=== PATIENT | male | born 1960 | race Caucasian/White ===

== ENCOUNTER 2016-04-23 15:43 | Inpatient (IN) | payer MEDICARE, OTHER ==
[2016-04-23 17:43] VITALS: BMI 32.4
--- NOTE | 2016-04-23 19:58 | HP ---
Admission ROS S - [facility] Chief Complaint: I WANT TO GO TO REHAB Allergies/Adverse Reactions: Allergies Allergy/AdvReac Type Severity Reaction Status Date / Time No Known Drug Allergies Allergy Verified 04/23/16 19:05 History of Present Illness: 55 YEARS OLD MALE WITH LONG HISTORY OF ALCOHOL HEROIN NICOTINE DEPENDENCE DENIES MEDICAL HAS SCHIZOPHRENIA TREATED WITH ZYPREXA 10 MG BID IS ADMITTED TO REHAB Exam Limitations: No Limitations - Ebola screening Have you traveled outside of the country in the last 21 days: No Have you had contact with anyone from an Ebola affected area: No Have you been sick,other than usual withdrawal symptoms: No Do you have a fever: No - Review of Systems Constitutional: No Symptoms Reported EENT: reports: No Symptoms Reported Respiratory: reports: No Symptoms reported Cardiac: reports: No Symptoms Reported GI: reports: No Symptoms Reported : reports: No Symptoms Reported Musculoskeletal: reports: Joint Pain (RIGHT CLAVICAL FX 2015 LEFT HEEL) Integumentary: reports: No Symptoms Reported Neuro: reports: No Symptoms reported Endocrine: reports: No Symptoms Reported Hematology: reports: No Symptoms Reported Psychiatric: reports: Judgement Intact, Orientated x3 Other Systems: Reviewed and Negative Patient History - Patient Medical History Hx Anemia: No Hx Asthma: No Hx Chronic Obstructive Pulmonary Disease (COPD): No Hx Cancer: No Hx Cardiac Disorders: No Hx Congestive Heart Failure: No Hx Hypertension: No Hx Hypercholesterolemia: No Hx Pacemaker: No HX Cerebrovascular Accident: No Hx Seizures: No Hx Dementia: No Hx Diabetes: No Hx Gastrointestinal Disorders: No Hx Liver Disease: No Hx Genitourinary Disorders: No Hx Sexually Transmitted Disorders: No Hx Renal Disease (ESRD): No Hx Thyroid Disease: No Hx Human Immunodeficiency Virus (HIV): No Hx Hepatitis C: No Hx Depression: No Hx Suicide Attempt: No Hx Bipolar Disorder: No Hx Schizophrenia: Yes - Patient Surgical History Past Surgical History: Yes - PPD History Previous Implant?: Yes Documented Results: Negative w/proof Implanted On Prior [facility] Admission?: No Date: 12/10/15 PPD to be Administered?: No - Smoking Cessation Smoking history: Current every day smoker Have you smoked in the past 12 months: Yes Aproximately how many cigarettes per day: 20 Cigars Per Day: 0 Hx Chewing Tobacco Use: No Initiated information on smoking cessation: Yes 'Breaking Loose' booklet given: 04/23/16 - Substance & Tx. History Hx Alcohol Use: Yes Hx Substance Use: Yes Substance Use Type: Alcohol, Heroin Hx Substance Use Treatment: Yes - Substances Abused Alcohol Route: Oral Frequency: Daily Amount used: P[place]KA Age of first use: 18 Date of Last Use: 04/02/16 Heroin Route: Inhalation Frequency: Daily Amount used: 5 BAGS Age of first use: 26 Date of Last Use: 04/02/16 Family Disease History - Family Disease History Family Disease History: Diabetes: Mother, Sister, Heart Disease: Father ( ) Admission Physical Exam [facility] - Vital Signs Vital Signs: Vital Signs - 24 hr 04/23/16 17:40 Temperature 97.4 F L Pulse Rate 79 Respiratory 18 Rate Blood Pressure 133/88 - Physical General Appearance: Yes: Nourished, Appropriately Dressed HEENTM: Yes: Hearing grossly Normal, Normal ENT Inspection, Normocephalic, Normal Voice Respiratory: Yes: Chest Non-Tender, Lungs Clear, Normal Breath Sounds, No Respiratory Distress, No Accessory Muscle Use Neck: Yes: Supple, Trachea in good position Breast: Yes: Breasts Symetrical Cardiology: Yes: Regular Rhythm, Regular Rate, S1, S2 Abdominal: Yes: Non Tender, Soft Genitourinary: Yes: Within Normal Limits Back: Yes: Normal Inspection Musculoskeletal: Yes: full range of Motion, Gait Steady, Muscle Pain Extremities: Yes: Normal Inspection, Normal Range of Motion, Non-Tender Neurological: Yes: Fully Oriented, Alert, Motor Strength 5/5, Normal Response Integumentary: Yes: Normal Color, Warm Lymphatic: Yes: Within Normal Limits - Diagnostic (1) Alcohol dependence with uncomplicated withdrawal Current Visit: Yes Status: Acute (2) Opioid dependence with withdrawal Current Visit: Yes Status: Acute (3) Schizophrenia Current Visit: Yes Status: Suspected Qualifiers: Schizophrenia type: schizophreniform disorder Qualified Code(s): F20.81 - Schizophreniform disorder Comment: ZYPREXA 10 MG PO BID (4) Nicotine dependence Current Visit: Yes Status: Acute Qualifiers: Nicotine product type: cigarettes Substance use status: uncomplicated Qualified Code(s): F17.210 - Nicotine dependence, cigarettes, uncomplicated (5) Stress fracture of right clavicle Current Visit: Yes Status: Resolved (6) Intractable left heel pain Current Visit: Yes Status: Chronic Cleared for Admission [facility] - Detox or Rehab [facility] Level of Care: Observation Bed Claeared for Rehab Admission: Yes [facility] Breath Alcohol Content Breath Alcohol Content: 0 Urine Drug Screen - Results Drug Screen Negative: No Urine Drug Screen Results: BZO-Benzodiazepines, MTD-Methadone
[2016-04-23] MEDS ORDERED: LOPERAMIDE HCL 2 MG CAPSULE PO PRN (20:12)
[2016-04-23] MEDS ORDERED: IBUPROFEN 400 MG TABLET (FP) PO PRN (20:12)
[2016-04-23] MEDS ORDERED: hydrOXYzine PAMOATE 50 MG CAPSULE (FP) PO PRN (20:12)
[2016-04-23] MEDS ORDERED: guaiFENesin/D-METHORPHAN HB 10 ML UNIT-DOSE CUPS PO PRN (20:12)
[2016-04-23] MEDS ORDERED: MAG HYDROX/AL HYDROX/SIMETH 30 ML UNIT-DOSE CUP PO PRN (20:12)
[2016-04-23] MEDS ORDERED: diphenhydrAMINE HCL 50 MG CAPSULE PO PRN (20:12)
[2016-04-23] MEDS ORDERED: NICOTINE POLACRILEX 2 MG GUM BC PRN (20:12)
[2016-04-23] MEDS ORDERED: MENTHOL/PHENOL 1 EACH UD MM PRN (20:12)
[2016-04-23] MEDS ORDERED: MAGNESIUM HYDROX 2400MG/30ML ORAL SUSPENSION 30 ML CUP PO PRN (20:12)
[2016-04-23] MEDS ORDERED: MAGNESIUM CITRATE 300 ML BOTTLE PO PRN (20:12)
[2016-04-23] MEDS ORDERED: P-EPHED 60MG/TRIPROLIDI 2.5MG TABLET PO PRN (20:12)
[2016-04-23] MEDS: THIAMINE HCL 100 MG TABLET (FP) PO SCH (23:50)
--- NOTE | 2016-04-24 10:02 | HP ---
Psychiatrist Admission - Data Date of interview: 04/24/16 Admission source: [facility] Identifying data: This is the first [facility] admission for this 55 years old single male, unemployed on SSD, living with his sister Medical History: Significant for history of S/P fracture right clavicle in 2014. Smokes cigarettes 1ppd Psychiatric History: Reports that his first psychiatric contact was at age 18 when he was admitted to [facility] for auditory hallucinations and paranoid delusions. He was diagnosed with Paranoid Schizophrenia and prescribed Haldol. Reports 8-9 subsequent hospitalizations with most recent in [address] [facility]. Reports not currently seeing a psychiatrist but gets scripts for Zyprexa 10 mg po BID from his PCP. Denies prior suicidal attempts Physical/Sexual Abuse/Trauma History: Denies history of physical, sexual abuse as well as DV relationship Additional Comment: Reports history of 2 previous misdemeanor arrests, Denies being on probation at present Vital Signs: Vital Signs - 24 hr 04/23/16 04/24/16 04/24/16 17:40 00:30 03:30 Temperature 97.4 F L Pulse Rate 79 Respiratory 18 16 16 Rate Blood Pressure 133/88 04/24/16 06:00 Temperature 97.4 F L Pulse Rate 64 Respiratory 18 Rate Blood Pressure 125/80 Allergies/Adverse Reactions: Allergies Allergy/AdvReac Type Severity Reaction Status Date / Time No Known Drug Allergies Allergy Verified 04/23/16 19:05 Date of last physical exam: 04/23/16 Concur with the findings of this exam: Yes - Substance Abuse/Tx History Hx Alcohol Use: Yes Hx Substance Use: Yes Substance Use Type: Alcohol (Started drinking alcohol at age 18, consumes one pint of vodka daily. Last drink on 04/02/16), Heroin (Started using heroin at age 26, consumes 5 bags daily. Last used on 04/02/16) Hx Substance Use Treatment: Yes (multiple previous inpt detox & inpt rehab) - Admission Criteria Previous failed treatment: No Poor recovery environment: Yes Comorbidities: Yes Mental Status Exam - Mental Status Exam Alert and Oriented to: Time, Place, Person Cognitive Function: Fair Patient Appearance: Well Groomed Mood: Hopeful, Euthymic Affect: Appropriate Patient Behavior: Cooperative Speech Pattern: Clear Voice Loudness: Normal Thought Process: Intact Thought Disorder: Not Present Hallucinations: Denies Suicidal Ideation: Denies Homicidal Ideation: Denies Insight/Judgement: Fair Sleep: Fair Appetite: Good Muscle strength/Tone: Normal Gait/Station: Normal Psychiatric Findings - Problem List ([place] 1, 2,3) (1) Alcohol dependence with uncomplicated withdrawal Current Visit: Yes Status: Acute (2) Opioid dependence with withdrawal Current Visit: Yes Status: Acute (3) Nicotine dependence Current Visit: Yes Status: Acute Qualifiers: Nicotine product type: cigarettes Substance use status: uncomplicated Qualified Code(s): F17.210 - Nicotine dependence, cigarettes, uncomplicated (4) Paranoid schizophrenia in remission Current Visit: Yes Status: Acute (5) Intractable left heel pain Current Visit: Yes Status: Chronic (6) Stress fracture of right clavicle Current Visit: Yes Status: Resolved - Initial Treatment Plan Initial Treatment Plan: 1) Continue Zyprexa 10 mg po BID. 2) Monitor progress
[2016-04-24 10:09] LABS: MCH 30.2 pg (25.7-33.7); MCHC 32.8 g/dl (32.0-35.9); MEAN CELL VOLUME 92.1 fl (80-96); MEAN PLT VOLUME 8.2 fl (7.5-11.1); PLATELET COUNT 287 K/MM3 (134-434); RDW 16.8 % (11.9-15.9)
[2016-04-24] MEDS: PRENATAL VITAMINS W/ FOLIC ACID TABLET (FP) PO SCH (10:09)
[2016-04-24] MEDS: NICOTINE 21 MG/24 HOURS TOPICAL PATCH TD SCH (10:09)
[2016-04-24 10:44] LABS: ALBUMIN 4.1 g/dl (3.4-5.0); ALK PHOS 67 U/L (45-117); ANION GAP 7 (8-16); BILIRUBIN,TOTAL 0.5 mg/dL (0.2-1.0); CALCIUM 9.3 mg/dL (8.5-10.1); CO2 28 mmol/L (21-32); CREATININE 0.8 mg/dL (0.7-1.3); GLUCOSE,RANDOM 85 mg/dL (74-106); SGOT/AST 16 U/L (15-37); SGPT/ALT 28 U/L (12-78); TOT PROT 7.9 g/dl (6.4-8.2)
[2016-04-24] MEDS ORDERED: PNEUMOC 13-VAL CONJ-DIP CRM/PF 0.5 ML DISP.SYRIN IM ONE (12:00)
[2016-04-24] MEDS ORDERED: PNEUMOCOCCAL 23 VACCINE 0.5 ML VIAL IM ONE (12:00)
[2016-04-24] MEDS ORDERED: INFLUENZA VACCINE 45 MCG/0.5 ML (MDV 16-17) IM ONE (12:00)
[2016-04-24] MEDS: OLANZapine 10 MG TABLET PO SCH ×2 (14:00→21:12)
[2016-04-24 17:31] LABS: URINE APPEARANCE CLEAR; URINE BILIRUBIN NEGATIVE (NEGATIVE); URINE BLOOD NEGATIVE (NEGATIVE); URINE COLOR YELLOW; URINE GLUCOSE (UA) NEGATIVE (NEGATIVE); URINE KETONE NEGATIVE (NEGATIVE); URINE LEUK ESTERASE NEGATIVE (NEGATIVE); URINE NITRITE NEGATIVE (NEGATIVE); URINE PROTEIN NEGATIVE (NEGATIVE); URINE UROBILINOGEN NEGATIVE E.U./dl (0.2-1.0)
[2016-04-24 19:44] LABS: HIV 1 & 2 AB NEGATIVE; HIV 1 AGp24 NEGATIVE
[2016-04-24] MEDS: ACETAMINOPHEN 325 MG TABLET (FP) PO PRN (21:12)
[2016-04-24] MEDS: THIAMINE HCL 100 MG TABLET (FP) PO SCH (21:12)
[2016-04-25] MEDS: PRENATAL VITAMINS W/ FOLIC ACID TABLET (FP) PO SCH (10:09)
[2016-04-25] MEDS: OLANZapine 10 MG TABLET PO SCH ×2 (10:09→23:09)
[2016-04-25] MEDS: ACETAMINOPHEN 325 MG TABLET (FP) PO PRN (10:10)
[2016-04-25] MEDS: NICOTINE 21 MG/24 HOURS TOPICAL PATCH TD SCH (10:13)
[2016-04-25] MEDS: THIAMINE HCL 100 MG TABLET (FP) PO SCH (21:32)
[2016-04-26] MEDS: NICOTINE 21 MG/24 HOURS TOPICAL PATCH TD SCH (10:16)
[2016-04-26] MEDS: PRENATAL VITAMINS W/ FOLIC ACID TABLET (FP) PO SCH (10:16)
[2016-04-26] MEDS: OLANZapine 10 MG TABLET PO SCH (11:11)
[2016-04-26] MEDS: ACETAMINOPHEN 325 MG TABLET (FP) PO PRN ×2 (11:13→21:28)
[2016-04-27] MEDS: THIAMINE HCL 100 MG TABLET (FP) PO SCH ×2 (00:01→21:36)
[2016-04-27] MEDS: OLANZapine 10 MG TABLET PO SCH ×3 (00:02→21:36)
[2016-04-27] MEDS: PRENATAL VITAMINS W/ FOLIC ACID TABLET (FP) PO SCH (10:06)
[2016-04-27] MEDS: NICOTINE 21 MG/24 HOURS TOPICAL PATCH TD SCH (10:06)
[2016-04-27] MEDS: ACETAMINOPHEN 325 MG TABLET (FP) PO PRN (10:06)
[2016-04-28 07:14] VITALS: BP 119/80; PULSE 61
[2016-04-28 07:15] VITALS: TEMP 97.7
[2016-04-28] MEDS: PRENATAL VITAMINS W/ FOLIC ACID TABLET (FP) PO SCH (09:22)
[2016-04-28] MEDS: NICOTINE 21 MG/24 HOURS TOPICAL PATCH TD SCH (09:23)
--- NOTE | 2016-04-28 09:30 | PN ---
Psychiatric Progress Note Vital Signs: Vital Signs Period Temp Pulse Resp BP Sys/Lock Pulse Ox Last 24 Hr 97.7 F 61 18-18 119/80 Date of Session: 04/28/16 Chief Complaint:: Discharge(AMA) HPI: Patient addressing Alcohol and Opoid Depencence comorbid with Nicotine Dependence and Paranoid Scchizophrenia ROS: Intractable left heel pain, was medically managed Current Medications: Active Medications Generic Name Dose Route Start Last Admin Trade Name Freq PRN Reason Stop Dose Admin Acetaminophen 650 mg 04/23/16 20:12 04/27/16 10:06 Tylenol - PO 650 mg Q4H PRN Administration PAIN Al Hydroxide/Mg Hydroxide 30 ml 04/23/16 20:12 Mylanta Oral Suspension - PO Q6H PRN DYSPEPSIA Diphenhydramine HCl 50 mg 04/23/16 20:12 Benadryl - PO HSMR1 PRN INSOMNIA Eucalyptus/Menthol/Phenol/Sorbitol 1 each 04/23/16 20:12 Cepastat Lozenge - MM Q4H PRN SORE THROAT Guaifenesin 10 ml 04/23/16 20:12 Robitussin Dm - PO Q6H PRN COUGH Hydroxyzine Pamoate 50 mg 04/23/16 20:12 Vistaril - PO Q4H PRN AGITATION Ibuprofen 400 mg 04/23/16 20:12 04/26/16 18:18 Motrin - PO 400 mg Q6H PRN Administration SEVERE PAIN Loperamide HCl 4 mg 04/23/16 20:12 Imodium - PO Q6H PRN DIARRHEA Magnesium Citrate 300 ml 04/23/16 20:12 Citroma - PO Q48H PRN CONSTIPATION Magnesium Hydroxide 30 ml 04/23/16 20:12 Milk Of Magnesia - PO DAILY PRN CONSTIPATION Nicotine 21 mg 04/24/16 10:00 04/27/16 10:06 Nicoderm Patch - TD 21 mg DAILY VEE Administration Nicotine Polacrilex 2 mg 04/23/16 20:12 Nicorette Gum - BC Q2H PRN NICOTINE REPLACEMENT RX Olanzapine 10 mg 04/24/16 12:45 04/27/16 21:36 Zyprexa - PO 10 mg BID VEE Administration Multivit/Folic Acid/Iron 1 tab 04/24/16 10:00 04/27/16 10:06 Vitamins ([facility]) - PO 1 tab DAILY VEE Administration Pseudoephedrine/Triprolidine 1 combo 04/23/16 20:12 Actifed - PO TID PRN NASAL CONGESTION Thiamine HCl 100 mg 04/23/16 22:00 04/27/16 21:36 Vitamin B1 - PO 100 mg HS VEE Administration Current Side Effect: No Lab tests ordered: No Lab tests reviewed: Yes Provider note:: Patient requests to leave medical advice today. Told development writer that after talking to his sister, he decided to leave. He claims that his sister misses him and wants him to come home. He also claims that he has outpatient set up for him to go to. Script for 30 days supply of Zyprexa 10 mg po BID was electronically transferred to [facility] at [address] [place] [address]. Patient shows no evidence of overt psychosis, lia or depression. Denies suicidal, homicidal ideations> Patient is stable for discharge against medical advice Total face to face time:: 25 Mental Status Exam - Mental Status Exam Alert and Oriented to: Time, Place, Person Cognitive Function: Fair Patient Appearance: Well Groomed Mood: Hopeful, Euthymic Affect: Appropriate Patient Behavior: Cooperative Speech Pattern: Clear Voice Loudness: Normal Thought Process: Intact Thought Disorder: Not Present Hallucinations: Denies Suicidal Ideation: Denies Homicidal Ideation: Denies Insight/Judgement: Poor Sleep: Fair Appetite: Good Muscle strength/Tone: Normal Gait/Station: Normal Psychiatric Treatment Plan - Problem List (1) Alcohol dependence with uncomplicated withdrawal Current Visit: Yes (2) Opioid dependence with withdrawal Current Visit: Yes (3) Nicotine dependence Current Visit: Yes Qualifiers: Nicotine product type: cigarettes Substance use status: uncomplicated Qualified Code(s): F17.210 - Nicotine dependence, cigarettes, uncomplicated (4) Paranoid schizophrenia in remission Current Visit: Yes (5) Intractable left heel pain Current Visit: Yes (6) Stress fracture of right clavicle Current Visit: Yes Initial treatment plan: Patient is leaving A
== END 2016-04-28 09:30 | disposition left against medical advice (07) | DRG 894 ==
LOC: YASAS 15:43 → Y3W 22:08
PROVIDERS: ADMIT Psychiatry & Neurology Psychiatry; ATTEND Psychiatry & Neurology Psychiatry
PROC: HZ42ZZZ Group Counseling for Substance Abuse Treatment, Cognitive-Behavioral (ICD-10-PCS; principal; 2016-04-23)
DX: F19.20 Other psychoactive substance dependence, uncomplicated (principal); F11.20 Opioid dependence, uncomplicated; F20.81 Schizophreniform disorder; F10.20 Alcohol dependence, uncomplicated; F17.210 Nicotine dependence, cigarettes, uncomplicated; M79.672 Pain in left foot; Z87.312 Personal history of (healed) stress fracture
CPT/HCPCS: 36415; 80053; 81003; 85027; 86593; 86803; 87389; 90732; 93005; 93010; G0009